=== PATIENT | female | born 2000 | race Caucasian/White ===

== ENCOUNTER → 2020-10-25 | Outpatient (CLI) | payer BC ==
[2020-10-25 16:18] LABS: Albumin 4.6 g/dL (3.80-4.90); Albumin/Globulin Ratio 2.56 (1.60-3.17); Anion Gap 8.4 mmol/L (4.00-12.00); BUN/Creat Ratio 18.33 Ratio (12.00-20.00); Calcium 9.6 mg/dL (8.7-10.3); Carbon Dioxide 25.6 mmol/L (21.6-31.8); Chol/HDL Ratio 4.02; Globulin 1.8 g/dL (1.6-3.3); LDL Cholesterol,Calculated 108.4 mg/dL (0.0-131.0); Non-African American GFR(CKD) 129.4 (60.0-200.0); Potassium 4.4 mmol/L (3.5-5.5); Total Bilirubin 0.4 mg/dL (0.2-1.2); Total Protein 6.4 g/dL (6.2-8.2); VLDL Calculation 18.6 mg/dL (5.00-40.00)
[2020-10-25 17:23] LABS: Basophils # (A) 0.06 X 10*3/uL (0.00-0.10); Basophils % (A) 0.6 %; Eosinophils # (A) 0.32 X 10*3/uL (0.04-0.35); Eosinophils % (A) 3.3 %; HCT 41.5 % (37.2-46.3); HGB 13.8 g/dL (12.0-15.0); Lymphocytes # (A) 2.99 X 10*3/uL (0.90-5.00); Lymphocytes % (A) 31.2 %; MCH 30.5 pg (27.0-32.0); MCHC 33.3 g/dL (32.0-37.0); MCV 91.6 fL (80.0-97.0); Mean Platelet Volume 10.1 fL (9.5-12.2); Monocytes % (A) 10.4 %; Neutrophils # (A) 5.14 X 10*3/uL (1.80-7.70); Neutrophils % (A) 53.9 %; Platelet Count 341 X 10*3/uL (140-440); RBC 4.53 X 10*6/uL (4.10-5.20); RDW 12.6 % (11.5-14.5); WBC 9.57 X 10*3/uL (4.50-10.00)
== END | disposition home or self-care (01) ==
LOC: LABWHC1 07:09
PROVIDERS: ATTEND Family Medicine
DX: R00.2 Palpitations (principal)
CPT/HCPCS: 36415; 80053; 80061; 84443; 85025

== ENCOUNTER 2022-11-23 06:44 | Outpatient (CLI) | payer BC ==
[2022-11-23 08:23] VITALS: BP 133/78; PULSE 76; RESP 16; TEMP 98.5
--- NOTE | 2022-11-27 12:48 | P.MSEPDOC ---
Presenting Problems - Arrival Data Date of Arrival on Unit: 11/23/22 Time of Arrival on Unit: 06:45 Mode of Transport: Ambulatory - Complaint OB-Reason for Admission/Chief Complaint: Vaginal Bleeding Medical History - Information : 1 Para: 0 - Gestational Age Gestational Age by RILEY (wks/days): 24 Weeks and 2 Days Review of Systems - Review of Systems Constitutional: No problems Breast: No problems ENT: No problems Cardiovascular: No problems Respiratory: No problems Gastrointestinal: No problems Genitourinary: No problems Musculoskeletal: No problems Neurological: No problems Skin: No problems Vital Signs - Temperature Temperature: 98.5 F Temperature Source: Temporal Artery Scan - Pulse Right Sitting Brachial Pulse Rate: 76 Pulse Assessment Method: Automatic Cuff - Respirations Respiratory Rate: 16 Oxygen Delivery Method: Room Air O2 Sat by Pulse Oximetry: 99 - Blood Pressure Right Arm Sitting Blood Pressure: 133/78 Blood Pressure Mean: 96 Blood Pressure Source: Automatic Cuff Medical Screen Scoring - Assessment - Baby A Baseline FHR: 140 Heart Rate - NICHD Category: Category I (Normal) Physician Notification - Physician Notified Physician Notified Date: 11/23/22 Physician Notified Time: 07:10 Physician: Serena Chandler Order Received: Yes Maternal Triage Index - Maternal Triage Index Presenting for scheduled procedure w/no complaint: No - Stat/Priority 1 Stat Priority 1: No - Urgent/Priority 2 Urgent Priority 2: No - Prompt/Priority 3 Prompt Priority 3: No - Non-Urgent/Priority 4 Non-Urgent Priority 4: Yes Criteria Met for Priority 4: brown vaginal discharge Disposition - Disposition OB Disposition: Discharge to home Discharge Date: 11/23/22 Discharge Time: 07:49 I agree with the RN Medical Screening Exam: Yes Case reviewed; plan agreed upon as documented in EMR&OBIX.: Yes Diagnosis: SPOTTING COMPLICATING , SECOND TRIMESTER
== END 2022-11-23 07:54 | disposition home or self-care (01) ==
LOC: FBPOP 06:44
PROVIDERS: ATTEND Obstetrics & Gynecology
DX: O26.852 Spotting complicating pregnancy, second trimester (principal); Z3A.24 24 weeks gestation of pregnancy
CPT/HCPCS: 99213

== ENCOUNTER 2023-02-28 00:36 | Outpatient (CLI) | payer BC ==
[2023-02-28 02:18] VITALS: BP 128/76; PULSE 76; RESP 16; TEMP 96.8
--- NOTE | 2023-03-03 13:10 | P.MSEPDOC ---
Presenting Problems - Arrival Data Date of Arrival on Unit: 02/28/23 Time of Arrival on Unit: 01:00 Mode of Transport: Ambulatory - Complaint OB-Reason for Admission/Chief Complaint: Possible Onset of Labor Comment: contractions for one hour Medical History - Information : 1 Para: 0 Term: 0 : 0 Abortions: Spontaneous or Elective: 0 Number of Living Children: 0 - Gestational Age Gestational Age by RILEY (wks/days): 35 Weeks and 5 Days - History Complications: GDM Review of Systems - Review of Systems Constitutional: No problems Breast: No problems ENT: No problems Cardiovascular: No problems Respiratory: No problems Gastrointestinal: No problems Genitourinary: No problems Musculoskeletal: No problems Neurological: No problems Skin: No problems Vital Signs - Temperature Temperature: 96.8 F Temperature Source: Oral - Pulse Supine Pulse Rate: 76 Pulse Assessment Method: Automatic Cuff - Respirations Respiratory Rate: 16 Oxygen Delivery Method: Room Air - Blood Pressure Left Arm Blood Pressure: 128/76 Blood Pressure Mean: 93 Blood Pressure Source: Automatic Cuff Medical Screen Scoring - Cervical Exam Dilation (cm): 1.5 Effacement (%): 60 Membranes: Intact - Uterine Contractions Intensity: Mild Resting: Soft to palpation - Assessment - Baby A Baseline FHR: 120 Heart Rate - NICHD Category: Category I (Normal) Physician Notification - Physician Notified Physician Notified Date: 02/28/23 Physician Notified Time: 02:18 Physician: dr see New Order Received: Yes - Notification Comment Comment: discharge Maternal Triage Index - Non-Urgent/Priority 4 Non-Urgent Priority 4: Yes Criteria Met for Priority 4: pt reports with possible contractions. dr see called pt to be discharged home Disposition - Disposition OB Disposition: Discharge to home, Written follow up instructions reviewed Discharge Date: 02/28/23 Discharge Time: 02:18 I agree with the RN Medical Screening Exam: Yes Case reviewed; plan agreed upon as documented in EMR&OBIX.: Yes Diagnosis: FALSE LABOR BEFORE 37 COMPLETED WEEKS OF GEST, THIRD TRI
== END 2023-02-28 02:20 | disposition home or self-care (01) ==
LOC: FBPOP 00:36
PROVIDERS: ATTEND Obstetrics & Gynecology
DX: O47.03 False labor before 37 completed weeks of gestation, third trimester (principal); Z3A.35 35 weeks gestation of pregnancy; O24.419 Gestational diabetes mellitus in pregnancy, unspecified control
CPT/HCPCS: 59025; 99213

== ENCOUNTER 2023-03-16 05:44 | Inpatient (IN) | payer BC ==
--- NOTE | 2023-03-15 21:56 | P.HPOB ---
History of Present Illness H&P Date: 03/15/23 Chief Complaint: Gestational diabetes This is a 23 y.o.female, 1, para 0, with an estimated date of confinement of 03/14/2023, estimated gestational age of 40-2/7 weeks, who presents for induction of labor due to gestational diabetes. Blood sugars have been well-controlled on diet. care has been otherwise non-complicated. labs: Gc/chlamydia/trich-neg Hepatitis B surface antigen-neg Rubella-immune Blood typae-O+ Antibody screen-neg Hemoglobin-14 Toxoplasma-neg Hepatitis C-neg Random glucose-89 1 hr. 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 Review of Systems Constitutional: Denies chills, Denies fever Eyes: denies blurred vision, denies pain Ears, nose, mouth and throat: Denies headache, Denies sore throat Cardiovascular: Denies chest pain, Denies shortness of breath Respiratory: Denies cough Gastrointestinal: Reports abdominal pain (irregular ctxs), Denies diarrhea, Denies nausea, Denies vomiting Genitourinary: Reports pelvic pain, Reports Integumentary: Denies pruritus, Denies rash Neurological: Denies numbness, Denies weakness Psychiatric: Denies anxiety, Denies depression Past Medical History Past Medical History: No Reported History History of Any Multi-Drug Resistant Organisms: None Reported Past Surgical History: No Surgical Hx Reported Past Anesthesia/Blood Transfusion Reactions: No Reported Reaction Past Psychological History: No Psychological Hx Reported Smoking Status: Never smoker Past Alcohol Use History: None Reported Past Drug Use History: None Reported Medications and Allergies Home Medications Medication Instructions Recorded Confirmed Type Vit No.179/Iron/Folic 1 each PO DAILY 11/23/22 02/28/23 History [ Tablet] Allergies Allergy/AdvReac Type Severity Reaction Status Date / Time No Known Allergies Allergy Verified 11/23/22 06:46 Exam Osteopathic Statement: *. No significant issues noted on an osteopathic structural exam other than those noted in the History and Physical/Consult. HEENT: within normal limits Heart: regular rate and rhythm Lungs: clear to auscultation bilaterally Abdomen: soft, non-tender Cervix: 2 cm/80%/-2 heart tones: 140's by doppler Extremities: neg. Anoop's Assessment and Plan (1) 40 weeks gestation of Status: Acute Code(s): Z3A.40 - 40 WEEKS GESTATION OF SNOMED Code(s): 33407909 (2) Gestational diabetes mellitus Status: Acute Code(s): O24.419 - GESTATIONAL DIABETES MELLITUS IN , UNSP CONTROL SNOMED Code(s): 90357708 Plan: Proceed with oxytocin induction of labor. Expectant management. Epidural anesthesia if desired
[2023-03-16 05:51] LABS: Glucose,Whole Blood 95 mg/dL (70-110)
[2023-03-16] MEDS ORDERED: METHYLERGONOVINE 0.2 MG/ML 1 ML AMP IM PRN (06:07)
[2023-03-16] MEDS ORDERED: LIDOCAINE 0.5% (PF) 5 MG/ML (50 ML SDV) SQ PRN (06:07)
[2023-03-16] MEDS ORDERED: miSOPROStoL 200 MCG TAB PO PRN (06:07)
[2023-03-16] MEDS ORDERED: TERBUTALINE 1 MG/ML VIAL SQ PRN (06:07)
[2023-03-16] MEDS ORDERED: TRANEXAMIC 1,000 MG/100ML-NACL 1,000 MG in EMPTY BAG 1 BAG IV PRN (06:07)
[2023-03-16] MEDS ORDERED: LIDOCAINE 1% (10MG/ML) FOR IV START INTRADERMA PRN (06:07)
[2023-03-16] MEDS ORDERED: OXYTOCIN 30 UNITS/500 ML NS 30 UNIT in SALINE 1 500ML.BAG IV SCH (06:07)
[2023-03-16] MEDS ORDERED: CARBOPROST TROMETHAMINE 250 MCG/ML 1 ML AMP IM PRN (06:07)
[2023-03-16] MEDS ORDERED: OXYTOCIN 10 UNIT/ML 1 ML VIAL IM PRN (06:07)
[2023-03-16] MEDS: LACTATED RINGERS 1,000 ML IV SCH ×2 (06:26→14:00)
[2023-03-16] MEDS: OXYTOCIN 30 UNITS/500 ML NS 30 UNIT in SALINE 1 500ML.BAG IV SCH ×2 (06:28→23:02)
[2023-03-16 06:56] LABS: Basophils % (A) 0 %; Eosinophils # (A) 0.2 k/uL (0-0.7); Eosinophils % (A) 2 %; HCT 34.9 % (34.0-46.0); HGB 12.5 gm/dL (11.4-16.0); Lymphocytes # (A) 2.5 k/uL (1.0-4.8); Lymphocytes % (A) 23 %; MCH 32.1 pg (25.0-35.0); MCHC 35.7 g/dL (31.0-37.0); MCV 89.8 fL (80.0-100.0); Mean Platelet Volume 7.7; Monocytes # (A) 0.6 k/uL (0-1.0); Monocytes % (A) 6 %; Neutrophils # (A) 7.6 k/uL (1.3-7.7); Neutrophils % (A) 69 %; Platelet Count 238 k/uL (150-450); RBC 3.89 m/uL (3.80-5.40); RDW 13.3 % (11.5-15.5); WBC 11.1 k/uL (3.8-10.6)
[2023-03-16 08:33] LABS: Glucose,Whole Blood 88 mg/dL (70-110)
[2023-03-16 11:19] LABS: Glucose,Whole Blood 90 mg/dL (70-110)
[2023-03-16] MEDS ORDERED: fentaNYL (PF) 50 MCG/ML 5 ML AMP ONE (12:04)
[2023-03-16] MEDS ORDERED: SODIUM CHLORIDE 0.9% 100 ML BAG ONE (12:04)
[2023-03-16] MEDS ORDERED: ROPIVACAINE 5 MG/ML 20 ML AMPULE ONE (12:04)
[2023-03-16 13:18] LABS: Glucose,Whole Blood 85 mg/dL (70-110)
[2023-03-16 15:25] LABS: Glucose,Whole Blood 80 mg/dL (70-110)
[2023-03-16 17:26] LABS: Glucose,Whole Blood 71 mg/dL (70-110)
[2023-03-16 18:49] LABS: Glucose,Whole Blood 70 mg/dL (70-110)
--- NOTE | 2023-03-16 21:09 | P.PROBDLV ---
Vaginal Delivery Note - . Vaginal Delivery Note: The patient underwent oxytocin induction of labor and did receive epidural anesthesia when she reached approximately 3 cm. She continued to approximately 8-1/2-9 cm with an anterior lip and then had a very strong urge to push and became uncontrolled. At this point she requested delivery due to the pain. I checked her and felt that her cervix was stretchy enough that she could try to push. I had her push while I reduced the anterior lip and the cervix did progress to complete dilation after a few pushes. The anterior lip did continue to come down once in a while but I was able to push it back with her contractions. She kept pushing effectively and brought baby's head to a crown. With one further push, the infant's head delivered across the perineum followed by the anterior shoulder. Nose and mouth were bulb suctioned. With one remaining push, the remainder the infant easily delivered and was placed on mother's abdomen. Terminal meconium was noted. Nose and mouth were again bulb suctioned. Cord was clamped and cut and was taken to warmer for evaluation. A viable male is noted with scores of 9 at 1 minute and 9 at 5 minutes and weight of 8 pounds 2.7 ounces. Her placenta delivered shortly thereafter, intact with a three-vessel cord. Uterus initially contracted fairly well but then she began having gushes of blood. I drained her bladder with a straight cath and placed a gloved hand within the endometrial cavity and removed several clots. Uterus initially did clamp down again. Inspection of the perineum revealed a second-degree perineal laceration. This area was anesthetized with 1% lidocaine and then sutured with 3-0 and 2-0 Vicryl suture in the usual multilayer fashion. She did continue to gush of blood again and therefore a gloved hand was again placed back within the uterine cavity and more blood clots were removed. No placental pieces were palpated. Oxytocin was opened up and she was given Methergine 0.2 mg IM. After this uterus did feel like it firmed up fairly well and minimal bleeding was noted. Total estimated blood loss is approximately 600 mL's. Both mother and infant are in stable condition.
[2023-03-16] MEDS ORDERED: LANOLIN CREAM 5 GM TUBE TOPICAL PRN (21:45)
[2023-03-16] MEDS ORDERED: diphenhydrAMINE 50 MG CAP PO PRN (21:45)
[2023-03-16] MEDS ORDERED: diphenhydrAMINE 50 MG/ML 1 ML VIAL IVP PRN ×2 (21:45)
[2023-03-16] MEDS ORDERED: ACETAMINOPHEN TAB 325 MG TAB PO PRN (21:45)
[2023-03-16] MEDS ORDERED: ZOLPIDEM 5 MG TAB PO PRN (21:45)
[2023-03-16] MEDS ORDERED: diphenhydrAMINE 25 MG CAP PO PRN (21:45)
[2023-03-16] MEDS ORDERED: BENZOCAINE/MENTHOL SPRAY 1 GM/SPRAY AEROSOL TOPICAL PRN (21:45)
[2023-03-16] MEDS ORDERED: SIMETHICONE 80 MG CHEWABLE PO PRN (21:45)
[2023-03-16] MEDS ORDERED: HYDROCORTISONE 2.5% RECTAL CREAM 30 GM TUBE RECTAL PRN (21:45)
[2023-03-16] MEDS: IBUPROFEN 600 MG TAB PO PRN (23:45)
[2023-03-17 07:34] LABS: Basophils % (A) 0 %; Eosinophils # (A) 0.1 k/uL (0-0.7); Eosinophils % (A) 1 %; HCT 31.4 % (34.0-46.0); HGB 10.8 gm/dL (11.4-16.0); Lymphocytes # (A) 2.2 k/uL (1.0-4.8); Lymphocytes % (A) 12 %; MCH 30.1 pg (25.0-35.0); MCHC 34.3 g/dL (31.0-37.0); MCV 87.9 fL (80.0-100.0); Mean Platelet Volume 7.8; Monocytes % (A) 5 %; Neutrophils # (A) 15.3 k/uL (1.3-7.7); Neutrophils % (A) 81 %; Platelet Count 224 k/uL (150-450); RBC 3.57 m/uL (3.80-5.40); RDW 13.6 % (11.5-15.5); WBC 19.1 k/uL (3.8-10.6)
[2023-03-17] MEDS ORDERED: SENNOSIDES-DOCUSATE SODIUM 1 EACH TAB PO SCH (08:00)
[2023-03-17] MEDS ORDERED: PRENATAL VIT-IRON-FOLIC ACID 1 EACH TABLET PO SCH (09:00)
--- NOTE | 2023-03-17 09:00 | P.DS ---
Providers Date of admission: 03/16/23 05:44 Expected date of discharge: 03/17/23 Attending physician: Vesta Blakely Primary care physician: Stated None - Discharge Diagnosis(es) (1) 40 weeks gestation of Current Visit: No Status: Acute (2) Gestational diabetes mellitus Current Visit: No Status: Acute Hospital Course: The 23-year-old female 1 para 0 at 40-2/7 weeks who presented for induction of labor secondary to gestational diabetes. She underwent oxytocin induction of labor and delivered vaginally a viable male on 03/16/2023 with scores of 9 at 1 minute and 9 at 5 minutes and infant weight of 8 pounds 2.7 ounces. Her course has been uncomplicated. Her lochia has been minimal. She is breast-feeding. Vital signs are stable. Abdomen is soft with fundus firm and nontender. Extremities show negative Homans. Impression is status post vaginal delivery day #1. Plan is to discharge home today. Routine instructions are given. She is advised to follow up in the office in 6 weeks for check. She will be given a prescription for ibuprofen and a breast pump. She is advised to call the office if she has any further questions or concerns prior to her appointment time. Procedures: Oxytocin induction of labor Spontaneous vaginal delivery of viable male infant on 03/16/2023 Patient Condition at Discharge: Stable Plan - Discharge Summary New Discharge Prescriptions: New Ibuprofen [Motrin] 600 mg PO Q6HR PRN #60 tab PRN Reason: Mild Pain (Scale 1 To 3) Continue Vit No.179/Iron/Folic [ Tablet] 1 each PO DAILY Discharge Medication List Vit No.179/Iron/Folic [ Tablet] 1 each PO DAILY 11/23/22 [History] Ibuprofen [Motrin] 600 mg PO Q6HR PRN #60 tab 03/17/23 [Rx] Follow up Appointment(s)/Referral(s): Vesta Blakely DO [Doctor of Osteopathic Medicine] - 1 Week (PP 04/28/2023 @11: 15) Activity/Diet/Wound Care/Special Instructions: Instructions 1. Do not begin any exercise program for 3 weeks. 2. Do not resume sexual relations for 3 weeks or longer if uncomfortable. 3. You may take tub baths or showers at any time. 4. You may use tampons if desired after 3 weeks. 5. Keep the area of episiotomy (stitches) clean and dry. 6. If you are not nursing, wear a good fitting, supportive bra during the day and limit fluid intake for at least 1 week to prevent breast engorgement. 7. Call the office, [phone], within the next week to make appointment for your 6 week checkup if it has not already been made. 8. Report any of the following occurrences to the doctor promptly: a. Heavy, excessive bleeding b. Chills, fever c. Burning or frequency of urination d. Pain or redness and breasts if nursing e. Increasing pain or swelling in episiotomy (stitches). In addition to the above instructions, the following additional should be followed: 1. No heavy lifting or straining (exercising) until after 6 week checkup. 2. Keep abdominal incision clean and dry: You may wear a dressing if more comfortable. 3. Make office appointment for 10 days after going home or as instructed by her doctor. Discharge Disposition: HOME SELF-CARE
[2023-03-17] MEDS: IBUPROFEN 600 MG TAB PO PRN ×2 (12:30→18:46)
[2023-03-17 21:33] VITALS: BP 116/80; PULSE 65; RESP 16; TEMP 97.9
== END 2023-03-17 22:00 | disposition home or self-care (01) | DRG 807 ==
LOC: 4FBP 05:44
PROVIDERS: ADMIT Obstetrics & Gynecology; ATTEND Obstetrics & Gynecology
PROC: 3E033VJ Introduction of Other Hormone into Peripheral Vein, Percutaneous Approach (ICD-10-PCS; principal; 2023-03-16)
PROC: 0KQM0ZZ Repair Perineum Muscle, Open Approach (ICD-10-PCS; principal; 2023-03-16)
PROC: 10E0XZZ Delivery of Products of Conception, External Approach (ICD-10-PCS; principal; 2023-03-16)
DX: O24.420 Gestational diabetes mellitus in childbirth, diet controlled (principal); O48.0 Post-term pregnancy; O77.0 Labor and delivery complicated by meconium in amniotic fluid; O70.1 Second degree perineal laceration during delivery; Z3A.40 40 weeks gestation of pregnancy; Z37.0 Single live birth
CPT/HCPCS: 83036; 85025; 86850; 86900; 86901

== ENCOUNTER → 2025-03-06 | Outpatient (CLI) | payer MEDICAID ==
[2025-03-06 19:20] LABS: Basophils # (A) 0.07 X 10*3/uL (0.00-0.10); Basophils % (A) 0.5 %; Eosinophils # (A) 0.54 X 10*3/uL (0.04-0.35); HGB 14.8 g/dL (12.0-15.0); Lymphocytes # (A) 3.21 X 10*3/uL (0.90-5.00); Lymphocytes % (A) 23.8 %; MCHC 33.6 g/dL (32.0-37.0); MCV 89.1 FL (80.0-97.0); Mean Platelet Volume 9.7 FL (9.5-12.2); Monocytes # (A) 0.88 X 10*3/uL (0.20-1.00); Monocytes % (A) 6.5 %; NRBC Per 100 WBC 0 X 10*3/uL (0.00-0.01); Neutrophils # (A) 8.66 X 10*3/uL (1.80-7.70); Neutrophils % (A) 64.4 %; Platelet Count 382 X 10*3/uL (140-440); RBC 4.94 X 10*6/uL (4.10-5.20); RDW 12.5 % (11.5-14.5); WBC 13.47 X 10*3/uL (4.50-10.00)
[2025-03-06 19:34] LABS: ALT 20 U/L (8-44); AST 21 U/L (13-35); Albumin 4.3 g/dL (3.8-4.9); Albumin/Globulin Ratio 1.59 Ratio (1.60-3.17); Alkaline Phosphatase 87 U/L (41-126); Blood Urea Nitrogen 8.7 mg/dL (9.0-27.0); Carbon Dioxide 18.5 mmol/L (21.6-31.8); Chloride 104 mmol/L (96-109); Chol/HDL Ratio 4.69 Ratio; Globulin 2.7 g/dL (1.6-3.3); Glucose 86 mg/dL (70-110); LDL Cholesterol,Calculated 115.6 mg/dL (0.0-131.0); Potassium 4.2 mmol/L (3.5-5.5); Sodium 137 mmol/L (135-145); T4, Free (Free Thyroxine) 1.12 ng/dL (0.80-1.80); Total Bilirubin <0.2 mg/dL (0.3-1.2)
== END | disposition home or self-care (01) ==
LOC: LABWHC1 15:19
PROVIDERS: ATTEND Registered Nurse
DX: Z13.29 Encounter for screening for other suspected endocrine disorder (principal); Z13.1 Encounter for screening for diabetes mellitus; Z13.6 Encounter for screening for cardiovascular disorders; Z13.220 Encounter for screening for lipoid disorders; R39.9 Unspecified symptoms and signs involving the genitourinary system
CPT/HCPCS: 36415; 80053; 80061; 83036; 84439; 84443; 85025; 87086; 87491; 87591

== ENCOUNTER → 2025-03-07 | Outpatient (CLI) | payer MEDICAID ==
--- NOTE | 2025-03-07 16:29 | US ---
EXAMINATION TYPE: US axilla LT DATE OF EXAM: 03/07/2025 COMPARISON: NONE CLINICAL INDICATION: Female, 25 years old with history of M79.622 PAIN IN LEFT UPPER ARM R22.32 LUE S WELL; pt has been feeling mobile lump on and off x 1 1/2 months, painful to touch TECHNIQUE: Lt Axilla scanned aoc grayscale and color Doppler imaging of the left axilla. FINDINGS: No obvious abnormalities seen, Lt Axillary Vein compressible IMPRESSION: No organizing fluid collection or mass. No lymphadenopathy. [facility], , 03/07/2025 4:27 PM
== END | disposition home or self-care (01) ==
LOC: RADUSWWP 15:36
PROVIDERS: ATTEND Family Medicine
DX: M79.622 Pain in left upper arm (principal); R22.32 Localized swelling, mass and lump, left upper limb